=== PATIENT | male | born 2000 | race Caucasian/White ===

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

== ENCOUNTER 2019-12-28 18:03 | Emergency (ER) | payer SELFPAY ==
[~2019-12-28] VITALS: Ht 177.8 cm; Wt 76.0 kg
[~2019-12-28 18:03] MED LIST: ALBU2.5V8 INH; HYDR5SUS PO; ONDA4TAB10 SL; OSEL75CA PO; PRED50TA PO
[2019-12-28 19:41] LABS: BILIRUBIN,URINE NEGATIVE (NEG); CLARITY,URINE CLOUDY; COLOR,URINE YELLOW; NITRITE,URINE NEGATIVE (NEG); PH,URINE 7.5 (<5.0-8.0); PROTEIN,URINE 30 mg/dL (NEG-TRACE)
[2019-12-28 19:42] LABS: AMORPHOUS SEDIMENT,UR PRESENT /HPF; BACTERIA,URINE 0 /HPF (0-FEW); RBC,URINE 0 /HPF (0-2); WBC,URINE 0 /HPF (0-4)
--- NOTE | 2019-12-28 20:03 | PHYS DOC ---
Past Medical History Past Medical History: Anxiety, Bipolar Additional Past Medical Histor: ADD, ADHD, PTSD Past Surgical History: No Surgical History Smoking Status: Never Smoker Alcohol Use: Rarely Drug Use: Marijuana General Adult EDM: Chief Complaint: TESTICULAR PAIN OR INJURY HPI: HPI: Patient is a 19 year old male who presents with complaint of 2-week history of left-sided testicular pain. He states the pain is intermittent. He describes it as like a deep throbbing type of pain when it is present. Currently he rates it as mild. He does indicate that he was doing self-examination a few days ago and noted a lump to the top of the left testicle and became concerned. He denies any penile discharge. He also denies any abdominal pain, nausea or vomiting. He has had no fever. He denies any urinary discomfort. [] Review of Systems: Review of Systems: Constitutional: Denies fever or chills. [] Respiratory: Denies cough or shortness of breath. [] Cardiovascular: Denies chest pain or edema. [] GI: Denies abdominal pain, nausea, vomiting or diarrhea. [] : Denies dysuria. Complains of left-sided testicular pain and left testicular lump [] Neurologic: Denies headache, focal weakness or sensory changes. [] Heart Score: Risk Factors: Risk Factors: DM, Current or recent (<one month) smoker, HTN, HLP, family history of CAD, obesity. Risk Scores: Score 0 - 3: 2.5% MACE over next 6 weeks - Discharge Home Score 4 - 6: 20.3% MACE over next 6 weeks - Admit for Clinical Observation Score 7 - 10: 72.7% MACE over next 6 weeks - Early Invasive Strategies Allergies: Allergies: Allergies Coded Allergies Type Severity Reaction Last Updated Verified No Known Drug Allergies 04/26/16 No Physical Exam: PE: Constitutional: Well developed, well nourished, no acute distress, non-toxic appearance. [] Neck: Normal range of motion, no tenderness, supple, no stridor. [] Cardiovascular: Regular rate and rhythm [] Lungs & Thorax: Bilateral breath sounds clear to auscultation [] Abdomen: Bowel sounds normal, soft, no tenderness. [] Skin: Warm, dry, no erythema, no rash. [] : Examination of testicles demonstrates no testicular mass. Left testicle does have some prominence around the epididymis with mild tenderness. No penile discharge is noted on exam. [] Neurologic: Alert and oriented X 3, no focal deficits noted. [] Current Patient Data: Labs: Laboratory Tests Test 12/28/19 18:30 Urine Collection Type Void Urine Color Yellow Urine Clarity Cloudy Urine pH 7.5 (<5.0-8.0) Urine Specific [place] >=1.030 (1.000-1.030) Urine Protein 30 mg/dL (NEG-TRACE) Urine Glucose (UA) Negative mg/dL (NEG) Urine Ketones (Stick) 15 mg/dL (NEG) Urine Blood Negative (NEG) Urine Nitrite Negative (NEG) Urine Bilirubin Negative (NEG) Urine Urobilinogen Dipstick 1.0 mg/dL (0.2 mg/dL) Urine Leukocyte Esterase Negative (NEG) Urine RBC 0 /HPF (0-2) Urine WBC 0 /HPF (0-4) Urine Amorphous Sediment Present /HPF Urine Bacteria 0 /HPF (0-FEW) Vital Signs: Vital Signs Date Time Temp Pulse Resp B/P (MAP) Pulse Ox O2 Delivery O2 Flow Rate FiO2 12/28/19 19:10 98.6 102 16 136/74 (94) 99 Room Air 98.6 EKG: EKG: [] Radiology/Procedures: Radiology/Procedures: [] Impression: PROCEDURE: TESTICULAR/SCROTUM Scrotal ultrasound. INDICATION: Left testicle pain for 2 weeks. TECHNIQUE: Grayscale, color and spectral Doppler imaging of the scrotal sac was performed. FINDINGS: The right testicle measures 4.1 x 3.1 x 2.3 cm and demonstrates normal echogenicity and blood flow. The left testicle measures 4.2 x 3.2 x 1.9 cm and demonstrates normal echogenicity and blood flow. The right epididymis is unremarkable. The left epididymal head contains a 0.8 x 1.3 x 0.7 cm cyst. No varicocele or hydrocele is evident. No scrotal wall thickening. IMPRESSION: Left epididymal head cyst. Otherwise unremarkable scrotal ultrasound with no evidence of testicular torsion Electronically signed by: Joseph Neely MD (12/28/2019 8:40 PM) [facility] [place] Med Decision Making: Course & Med Decision Making Pertinent Labs and Imaging studies reviewed. (See chart for details) [] Dragon Disclaimer: Dragon Disclaimer: This electronic medical record was generated, in whole or in part, using a voice recognition dictation system. Departure Departure Impression: Primary Impression: Cyst of epididymis Disposition: HOME, SELF-CARE Condition: STABLE Referrals: NO PCP (PCP) Patient Instructions: Epididymitis Scripts Hydrocodone/Apap 5-325 (NORCO 5-325 TABLET) 1 Each Tablet 1-2 EACH PO PRN Q6HRS PRN for PAIN, #15 as needed for pain Prov: SHELIA DYKES Jr. DO 12/28/19 Ciprofloxacin Hcl (CIPROFLOXACIN HCL) 500 Mg Tablet 1 TAB PO BID, #20 TAB Prov: SHELIA DYKES Jr. DO 12/28/19 SHELIA DYKES Jr. DO December 28, 2019 20:03
--- NOTE | 2019-12-28 20:43 | RAD ---
Scrotal ultrasound. INDICATION: Left testicle pain for 2 weeks. TECHNIQUE: Grayscale, color and spectral Doppler imaging of the scrotal sac was performed. FINDINGS: The right testicle measures 4.1 x 3.1 x 2.3 cm and demonstrates normal echogenicity and blood flow. The left testicle measures 4.2 x 3.2 x 1.9 cm and demonstrates normal echogenicity and blood flow. The right epididymis is unremarkable. The left epididymal head contains a 0.8 x 1.3 x 0.7 cm cyst. No varicocele or hydrocele is evident. No scrotal wall thickening. IMPRESSION: Left epididymal head cyst. Otherwise unremarkable scrotal ultrasound with no evidence of testicular torsion Electronically signed by: Joseph Neely MD (12/28/2019 8:40 PM) [facility] [place]
[2019-12-28] MEDS ORDERED: HYDR-3164 PO (20:50)
[2019-12-28] MEDS ORDERED: CIPR500T PO (20:50)
[2019-12-28 21:28] VITALS: BP 120/61
== END 2019-12-28 21:28 | disposition home or self-care (01) ==
LOC: ER 18:03
DX: N50.3 Cyst of epididymis (principal); F41.9 Anxiety disorder, unspecified; F31.9 Bipolar disorder, unspecified; F43.12 Post-traumatic stress disorder, chronic; F12.90 Cannabis use, unspecified, uncomplicated
CPT/HCPCS: 76870; 81001; 99284